=== PATIENT | male | born 1965 | race Caucasian/White ===

== ENCOUNTER 2019-03-31 15:30 | Emergency (ER) | payer BC ==
[2019-03-31] MEDS ORDERED: Ibuprofen 800 MG TAB ONE (15:56)
[2019-03-31] MEDS ORDERED: Acetaminophen 500 MG TAB ONE (15:56)
--- NOTE | 2019-03-31 15:58 | RAD ---
XR Ankle Rt 3 View STANDARD: 03/31/2019 3:35 PM CLINICAL INDICATION: Injury, pain COMPARISON: None. FINDINGS: Fracture:No fracture. Arthropathy:None of significance. Incidental findings:None of significance. IMPRESSION: 1. No acute osseous abnormality.
== END 2019-03-31 16:32 | disposition home or self-care (01) ==
LOC: SCSER 15:30
DX: S93.401A Sprain of unspecified ligament of right ankle, initial encounter (principal); W01.0XXA Fall on same level from slipping, tripping and stumbling without subsequent striking against object, initial encounter

== ENCOUNTER 2020-11-16 17:30 | Outpatient (CLI) | payer BC | END 2020-11-16 17:31 | disposition home or self-care (01) | LOC: SLEEPLAB 17:30 | PROVIDERS: ATTEND Internal Medicine Critical Care Medicine | DX: G47.33 Obstructive sleep apnea (adult) (pediatric) (principal); R06.83 Snoring; G47.00 Insomnia, unspecified | CPT/HCPCS: 95806 ==

== ENCOUNTER 2021-11-17 12:22 | Outpatient (CLI) | payer BC ==
[2021-11-17] MEDS ORDERED: Magnevist 469MG/ML 20 ML VIAL ONE (12:31)
== END 2021-11-17 12:23 | disposition home or self-care (01) ==
LOC: MRI 12:22
PROVIDERS: ATTEND Student in an Organized Health Care Education/Training Program
DX: H90.5 Unspecified sensorineural hearing loss (principal)
CPT/HCPCS: 70553; A9579

== ENCOUNTER 2024-03-19 14:49 | Outpatient (CLI) | payer BC ==
[2024-03-19 15:32] LABS: #Basophils 0.09 10x3/uL (0.0-0.2); #Monocytes 0.89 10x3/uL (0.0-1.1); #Neutrophils 7.14 10x3/uL (1.5-8.4); %Basophils 0.8 % (0.0-2.0); %Eosinophils 0.9 % (0.0-6.0); %Lymphocytes 26.8 % (18.0-47.0); %Monocytes 7.9 % (0.0-10.0); %Neutrophils 63.3 % (40.0-75.0); Hematocrit 42.7 % (38.8-50.0); Hemoglobin 14.6 g/dL (13.5-17.5); Mean Corpuscular HGB CONC 34.2 g/dL (32.0-36.0); Mean Corpuscular Hemoglobin 30.7 pg (27.0-33.0); Mean Corpuscular Volume 89.7 fl (81.2-95.1); Platelet Count 273 10x3/uL (150-450); RBC Distribution Width 12.5 % (11.5-14.5); Red Blood Cell (RBC) Count 4.76 10x6/uL (4.32-5.72); White Blood Cell (WBC) Count 11.3 10x3/uL (3.5-10.5)
[2024-03-19 16:03] LABS: Anion Gap 15 mmol/L (10-20); BUN (Urea Nitrogen) 19 mg/dL (8.4-25.7); Calc. Creatinine Clearance 0 mL/min (70-130); Calcium 9.8 mg/dL (7.8-10.44); Carbon Dioxide 27 mmol/L (22-29); Chloride 100 mmol/L (98-107); Estimated GFR 51; Glucose 152 mg/dL (70-105); Potassium 3.8 mmol/L (3.5-5.1); Sodium 138 mmol/L (136-145)
== END 2024-03-19 14:50 | disposition home or self-care (01) ==
LOC: LABBT 14:49
PROVIDERS: ATTEND Orthopaedic Surgery
DX: Z01.812 Encounter for preprocedural laboratory examination (principal); S46.211A Strain of muscle, fascia and tendon of other parts of biceps, right arm, initial encounter
CPT/HCPCS: 80048; 85025

== ENCOUNTER 2024-03-28 08:54 | Day surgery (SDC) | payer BC ==
[2024-03-19 15:23] VITALS: BMI 26.4
[2024-03-28] MEDS ORDERED: EPINEPHrine 1 MG/ML VIAL ONE (09:40)
[2024-03-28] MEDS ORDERED: Lidocaine 1% (PF) 30 ML VIAL ONE (09:40)
[2024-03-28] MEDS ORDERED: CEFAZOLIN 2 GM VIAL ONE (09:43)
[2024-03-28] MEDS ORDERED: Sodium Chloride 0.9% 100 ML ONE (09:43)
[2024-03-28] MEDS ORDERED: Bupivacaine 0.25% HCL 30 ML VIAL ONE (10:41)
[2024-03-28] MEDS ORDERED: PROPOFOL 20 ML ONE (10:50)
[2024-03-28] MEDS ORDERED: Ropivacaine 0.2% 550 ML 550 ML NERVE BLCK SCH (11:00)
[2024-03-28] MEDS ORDERED: Promethazine HCl 25 MG/ML VIAL IM PRN (11:00)
[2024-03-28] MEDS ORDERED: HYDROcodone/Acetaminophen 5/325 mg Tablet PO PRN ×2 (11:00)
[2024-03-28] MEDS ORDERED: Ondansetron PF 4 MG/2 ML Vial IVP PRN (11:00)
[2024-03-28] MEDS ORDERED: Ketorolac Tromethamine 30 MG (1 mL) VIAL IVP PRN (11:00)
[2024-03-28] MEDS ORDERED: Zolpidem Tartrate 5 MG TAB PO PRN (11:00)
[2024-03-28] MEDS ORDERED: traMADol HCl 50 MG TAB PO PRN ×2 (11:00)
[2024-03-28] MEDS ORDERED: fentaNYL 50 mcg/mL 1 mL Vial ONE ×3 (11:02→14:30)
[2024-03-28] MEDS ORDERED: Glycopyrrolate 0.2 MG/ML 5 ML SYRINGE ONE (11:09)
[2024-03-28] MEDS ORDERED: Ondansetron PF 4 MG/2 ML Vial ONE (11:26)
[2024-03-28] MEDS ORDERED: PHENYLEPHRINE-NS 100 MCG/ML 10 ML SYRINGE ONE (11:45)
[2024-03-28] MEDS ORDERED: HYDROcodone/Acetaminophen 5/325 mg Tablet ONE (15:47)
== END 2024-03-28 16:02 | disposition home or self-care (01) ==
LOC: SDC 08:54
PROVIDERS: ATTEND Orthopaedic Surgery
PROC: 0RSJ4ZZ Reposition Right Shoulder Joint, Percutaneous Endoscopic Approach (ICD-10-PCS; principal; 2024-03-28)
DX: S46.211A Strain of muscle, fascia and tendon of other parts of biceps, right arm, initial encounter (principal); Z79.899 Other long term (current) drug therapy; X50.9XXA Other and unspecified overexertion or strenuous movements or postures, initial encounter
CPT/HCPCS: A4306; A6223; C1713; J0171; J0665; J2001; J2405; J2704; J2795; J3010; J3490

== ENCOUNTER 2025-09-10 13:30 | Outpatient (CLI) | payer BC | END 2025-09-10 13:31 | disposition home or self-care (01) | LOC: BICRAD 13:30 | PROVIDERS: ATTEND Nurse Practitioner Family | DX: M79.602 Pain in left arm (principal); M25.522 Pain in left elbow; R59.1 Generalized enlarged lymph nodes ==